=== PATIENT | female | born 1955 | race Caucasian/White ===

== ENCOUNTER → 2018-10-18 | Outpatient (CLI) | payer OTHER | LOC: FIMAGING 11:14 | PROVIDERS: ATTEND Orthopaedic Surgery | DX: Z01.818 Encounter for other preprocedural examination (principal); M17.11 Unilateral primary osteoarthritis, right knee; M25.461 Effusion, right knee; M23.41 Loose body in knee, right knee ==

== ENCOUNTER 2018-11-21 09:08 | Observation (INO) | payer OTHER | END 2018-11-22 13:24 | disposition home or self-care (01) | LOC: F3E 09:08 → F3N 10:22 ==